=== PATIENT | male | born 1985 | race Caucasian/White ===

== ENCOUNTER 2016-07-02 23:09 | Emergency (ER) | payer SELFPAY ==
[~2016-07-02] VITALS: Ht 175.3 cm; Wt 69.4 kg
[~2016-07-02 23:09] MED LIST: DELTASONE20 M1 PO; DEPAKOTE500 MG PO; KEFLEX500 MG PO; LEVAQUIN750 MG PO; LIBRIUM25 MG PO; PROMETHAZINE-C120 ML PO; RISPERDAL1 MG PO; SEROQUEL50 MG PO; SILVADENE20 GM TP; THIAMINE HCL100 MG PO; TRAMADOL HCL50 MG PO; VITAMIN B-1100 MG PO
[2016-07-02 23:10] VITALS: BP 147/106
== END 2016-07-03 00:05 | disposition left against medical advice (07) ==
LOC: EME 23:09
DX: R51 Headache (principal); Y09 Assault by unspecified means; Z53.21 Procedure and treatment not carried out due to patient leaving prior to being seen by health care provider

== ENCOUNTER 2016-07-12 01:35 | Inpatient (IN) | payer SELFPAY ==
[~2016-07-12] VITALS: Ht 180.3 cm; Wt 70.8 kg
[2016-07-12 02:42] LABS: HEMATOCRIT 37.8 % (38.0-50.0); MCH 29.9 PG (29.0-34.0); MCHC 33.6 G/DL (30.0-36.0); MCV 88.9 FL (86-99); MEAN PLAT.VOLUME 10.4 uM^3 (9.0-12.4); PLATELET COUNT 234 K/uL (156-360); RBC DIS.WIDTH-CV 12.6 % (11.8-14.6); RBC DIS.WIDTH-SD 39.6 % (39-53); RED BLOOD COUNT 4.25 M/uL (4.00-5.50); WHITE BLOOD COUNT 9.9 K/uL (4.1-10.2)
[2016-07-12 02:53] LABS: CHLORIDE 112 mEq/L (99-109); POTASSIUM 3.2 mEq/L (3.7-5.4); SODIUM 144 mEq/L (136-147)
[2016-07-12 02:54] LABS: GLUCOSE 87 mg/dL (70-99)
[2016-07-12 02:56] LABS: ANION GAP 13 MEQ/L (2-14)
[2016-07-12 02:58] LABS: GFR ESTIMATE (CALCULATED) > 59 mL/min/; SERUM ETHYL ALCOHOL 161 mg/dL
[2016-07-12 03:00] LABS: UREA NITROGEN (BUN) 7 mg/dL (9-23)
[2016-07-12 03:01] LABS: SALICYLATE < 5.0 MG/DL (15-30)
[2016-07-12 11:42] LABS: ADD MEDTOX COMMENT Y; AMPHETAMINE NEGATIVE (500 ng/mL); BARBITURATES NEGATIVE (200 ng/mL); BENZODIAZEPINES PRESUMPTIVE POSITIVE (150 ng/mL); COCAINE NEGATIVE (150 ng/mL); INTERNAL CONTROLS VALID? YES; METHADONE NEGATIVE (200 ng/mL); METHAMPHETAMINE NEGATIVE (500 ng/mL); OPIATES (MORPHINE) NEGATIVE (100 ng/mL); OXYCODONE NEGATIVE (100 ng/mL); PHENCYCLIDINE NEGATIVE (25 ng/mL); PROPOXYPHENE NEGATIVE (300 ng/mL); THC CANNABINOIDS PRESUMPTIVE POSITIVE (50 ng/mL); TRICYCLIC ANTIDEPRESSANTS NEGATIVE (300 ng/mL)
[2016-07-12 12:22] LABS: BENZODIAZEPINES QUANT VALUE 0 NG/ML
[2016-07-12 12:30] LABS: BENZODIAZEPINES, URINE SCREEN Negative (200 ng/mL)
[2016-07-12 14:59] VITALS: BP 126/81
[2016-07-12 15:54] VITALS: BP 126/81
[2016-07-12 17:04] LABS: MAGNESIUM 1.6 mg/dL (1.3-2.7)
[2016-07-13 07:42] VITALS: BP 140/78
[2016-07-13 09:18] LABS: ALKALINE PHOSPHATASE 50 IU/L (3-129); ANION GAP 8 MEQ/L (2-14); CHLORIDE 106 MEQ/L (99-109); GFR ESTIMATE (CALCULATED) > 59 mL/min/; SAMPLE HEMOLYSIS CHECK 0; SAMPLE ICTERIC CHECK 0; SAMPLE LIPEMIA CHECK 0; SODIUM 140 MEQ/L (136-147); TOTAL BILIRUBIN 0.9 MG/DL (0.0-1.0); UREA NITROGEN (BUN) 14 mg/dL (9-23)
[2016-07-13 09:20] LABS: GLUCOSE 118 mg/dL (70-99); POTASSIUM 4.2 MEQ/L (3.7-5.4)
[2016-07-13 15:51] VITALS: BP 134/82
[2016-07-14 06:16] VITALS: BP 127/80
[2016-07-14 09:44] VITALS: BP 147/87
[2016-07-14] MEDS ORDERED: SERTRALINE HCL50 MG PO (11:51)
== END 2016-07-14 12:01 | disposition home or self-care (01) | DRG 885 ==
LOC: EME 01:35 → 1WEST 11:52 → EDOF 11:52 → 1WEST 15:02
PROVIDERS: Emergency Medicine; Psychiatry & Neurology Psychiatry
DX: F33.9 Major depressive disorder, recurrent, unspecified (principal); F60.2 Antisocial personality disorder; F10.129 Alcohol abuse with intoxication, unspecified; F12.10 Cannabis abuse, uncomplicated; Z91.5 Personal history of self-harm; R45.851 Suicidal ideations; Y90.4 Blood alcohol level of 80-99 mg/100 ml
CPT/HCPCS: 70450; 70498; 72125; 74022; 80048; 80053; 83735; 84999; 85027; 90837; 97150 GO; 97166 GO; 99281; 99285; G0480; J1630; J2060; J7030; Q0177

== ENCOUNTER 2016-07-27 10:10 | Emergency (ER) | payer SELFPAY ==
[~2016-07-27] VITALS: Ht 175.3 cm; Wt 69.2 kg
[~2016-07-27 10:10] MED LIST changes: +SERTRALINE HCL50 MG PO
[2016-07-27 11:07] LABS: HEMATOCRIT 40.8 % (38.0-50.0); MCHC 34.3 G/DL (30.0-36.0); MCV 87.6 FL (86-99); MEAN PLAT.VOLUME 9.5 uM^3 (9.0-12.4); PLATELET COUNT 272 K/uL (156-360); RBC DIS.WIDTH-CV 13.2 % (11.8-14.6); RBC DIS.WIDTH-SD 41.1 % (39-53); RED BLOOD COUNT 4.66 M/uL (4.00-5.50); WHITE BLOOD COUNT 10.5 K/uL (4.1-10.2)
[2016-07-27 11:10] LABS: BILIRUBIN NEGATIVE; BLOOD NEGATIVE; COLOR YELLOW ((YELLOW)); GLUCOSE (STRIP) NEGATIVE; KETONES NEGATIVE; LEUKOCYTES NEGATIVE; NITRITE NEGATIVE; PROTEIN (STRIP) NEGATIVE; SPECIFIC GRAVITY 1.021 (1.000-1.030)
[2016-07-27 11:11] LABS: ADD MIUA? NO; UCUL ADDED? NO
[2016-07-27 11:19] LABS: CHLORIDE 103 mEq/L (99-109); POTASSIUM 4.2 mEq/L (3.7-5.4); SODIUM 137 mEq/L (136-147)
[2016-07-27 11:22] LABS: THC CANNABINOIDS PRESUMPTIVE POSITIVE (50 ng/mL)
[2016-07-27 11:22] LABS: GLUCOSE 82 mg/dL (70-99)
[2016-07-27 11:23] LABS: ANION GAP 6 MEQ/L (2-14); TOTAL BILIRUBIN 0.7 mg/dL (0.0-1.0)
[2016-07-27 11:23] LABS: ADD MEDTOX COMMENT Y; AMPHETAMINE NEGATIVE (500 ng/mL); BARBITURATES NEGATIVE (200 ng/mL); BENZODIAZEPINES NEGATIVE (150 ng/mL); COCAINE NEGATIVE (150 ng/mL); INTERNAL CONTROLS VALID? YES; METHADONE NEGATIVE (200 ng/mL); METHAMPHETAMINE NEGATIVE (500 ng/mL); OPIATES (MORPHINE) NEGATIVE (100 ng/mL); OXYCODONE NEGATIVE (100 ng/mL); PHENCYCLIDINE NEGATIVE (25 ng/mL); PROPOXYPHENE NEGATIVE (300 ng/mL); TRICYCLIC ANTIDEPRESSANTS NEGATIVE (300 ng/mL)
[2016-07-27 11:24] LABS: SERUM ETHYL ALCOHOL < 10 mg/dL
[2016-07-27 11:25] LABS: ALKALINE PHOSPHATASE 61 IU/L (3-129); GFR ESTIMATE (CALCULATED) > 59 mL/min/
[2016-07-27 11:26] LABS: UREA NITROGEN (BUN) 14 mg/dL (9-23)
[2016-07-27] MEDS ORDERED: VALIUM5 MG PO (18:08)
[2016-07-27 18:12] VITALS: BP 119/81
== END 2016-07-27 18:24 | disposition home or self-care (01) ==
LOC: EME 10:10
PROVIDERS: Emergency Medicine
DX: F10.239 Alcohol dependence with withdrawal, unspecified (principal); F33.1 Major depressive disorder, recurrent, moderate; F60.2 Antisocial personality disorder; F17.200 Nicotine dependence, unspecified, uncomplicated
CPT/HCPCS: 80053; 81003; 84999; 85027; 90839; 99281; 99285; G0480; J2060; J7030

== ENCOUNTER 2016-09-06 13:58 | Emergency (ER) | payer BC ==
[~2016-09-06] VITALS: Ht 175.3 cm; Wt 67.3 kg
[~2016-09-06 13:58] MED LIST changes: +VALIUM5 MG PO
[2016-09-06 15:09] VITALS: BP 148/103
== END 2016-09-06 15:16 | disposition home or self-care (01) ==
LOC: EME 13:58
DX: F10.239 Alcohol dependence with withdrawal, unspecified (principal)
CPT/HCPCS: 99281; 99284; J3360

== ENCOUNTER 2016-11-14 21:46 | Emergency (ER) | payer BC ==
[~2016-11-14] VITALS: Ht 175.3 cm; Wt 74.8 kg
[2016-11-14 21:48] VITALS: BP 135/101
[2016-11-14 22:08] LABS: ADD MIUA? YES; BILIRUBIN NEGATIVE; BLOOD NEGATIVE; COLOR AMBER ((YELLOW)); GLUCOSE (STRIP) NEGATIVE; KETONES NEGATIVE; LEUKOCYTES NEGATIVE; NITRITE NEGATIVE; PROTEIN (STRIP) 100
[2016-11-14 22:27] LABS: BACTERIA NONE SEEN /HPF; CALCIUM OXALATE CRYSTALS 3+ /HPF; EPITHELIAL CELLS RARE /HPF; MUCUS 4+ /LPF; RED BLOOD CELLS NONE SEEN /HPF (0-5); UCUL ADDED? NO; WHITE BLOOD CELLS NONE SEEN /HPF (0-5)
[2016-11-14 22:29] LABS: ADD MEDTOX COMMENT Y; AMPHETAMINE NEGATIVE (500 ng/mL); BARBITURATES NEGATIVE (200 ng/mL); BENZODIAZEPINES NEGATIVE (150 ng/mL); COCAINE NEGATIVE (150 ng/mL); INTERNAL CONTROLS VALID? YES; METHADONE NEGATIVE (200 ng/mL); METHAMPHETAMINE NEGATIVE (500 ng/mL); OPIATES (MORPHINE) NEGATIVE (100 ng/mL); OXYCODONE NEGATIVE (100 ng/mL); PHENCYCLIDINE NEGATIVE (25 ng/mL); PROPOXYPHENE NEGATIVE (300 ng/mL); THC CANNABINOIDS PRESUMPTIVE POSITIVE (50 ng/mL); TRICYCLIC ANTIDEPRESSANTS NEGATIVE (300 ng/mL)
== END 2016-11-15 00:43 | disposition left against medical advice (07) ==
LOC: EME 21:46
DX: R41.9 Unspecified symptoms and signs involving cognitive functions and awareness (principal); Z53.21 Procedure and treatment not carried out due to patient leaving prior to being seen by health care provider
CPT/HCPCS: 80048; 81003; 84999; 85027; G0480

== ENCOUNTER 2016-11-20 15:12 | Emergency (ER) | payer BC ==
[~2016-11-20] VITALS: Ht 175.3 cm; Wt 74.2 kg
[2016-11-20 15:58] LABS: HEMATOCRIT 42.5 % (38.0-50.0); MCH 29.8 PG (29.0-34.0); MCHC 33.9 G/DL (30.0-36.0); MCV 87.8 FL (86-99); MEAN PLAT.VOLUME 9.3 uM^3 (9.0-12.4); PLATELET COUNT 207 K/uL (156-360); RBC DIS.WIDTH-CV 12.7 % (11.8-14.6); RBC DIS.WIDTH-SD 40.8 % (39-53); RED BLOOD COUNT 4.84 M/uL (4.00-5.50); WHITE BLOOD COUNT 7.8 K/uL (4.1-10.2)
[2016-11-20 16:08] LABS: CHLORIDE 102 mEq/L (99-109); POTASSIUM 4.4 mEq/L (3.7-5.4); SODIUM 136 mEq/L (136-147)
[2016-11-20 16:10] LABS: GLUCOSE 90 mg/dL (70-99)
[2016-11-20 16:11] LABS: ANION GAP 10 MEQ/L (2-14)
[2016-11-20 16:13] LABS: SERUM ETHYL ALCOHOL < 10 mg/dL
[2016-11-20 16:14] LABS: GFR ESTIMATE (CALCULATED) > 59 mL/min/
[2016-11-20 16:15] LABS: UREA NITROGEN (BUN) 13 mg/dL (9-23)
[2016-11-20 16:40] LABS: TOTAL BILIRUBIN 1.5 mg/dL (0.0-1.0)
[2016-11-20 16:41] LABS: ALKALINE PHOSPHATASE 74 IU/L (3-129)
[2016-11-20 16:43] LABS: DIRECT BILIRUBIN 0.6 mg/dL (0.0-0.3)
[2016-11-20 16:44] LABS: LIPASE 37 U/L (1.0-51.0)
[2016-11-20 16:51] LABS: AMPHETAMINE NEGATIVE (500 ng/mL); COCAINE NEGATIVE (150 ng/mL); METHAMPHETAMINE NEGATIVE (500 ng/mL); OPIATES (MORPHINE) NEGATIVE (100 ng/mL); PHENCYCLIDINE NEGATIVE (25 ng/mL); THC CANNABINOIDS PRESUMPTIVE POSITIVE (50 ng/mL)
[2016-11-20 16:52] LABS: ADD MEDTOX COMMENT Y; BARBITURATES NEGATIVE (200 ng/mL); BENZODIAZEPINES NEGATIVE (150 ng/mL); INTERNAL CONTROLS VALID? YES; METHADONE NEGATIVE (200 ng/mL); OXYCODONE NEGATIVE (100 ng/mL); PROPOXYPHENE NEGATIVE (300 ng/mL); TRICYCLIC ANTIDEPRESSANTS NEGATIVE (300 ng/mL)
[2016-11-20] MEDS ORDERED: LIBRIUM25 MG PO (18:16)
[2016-11-20] MEDS ORDERED: THIAMINE HCL100 MG PO (18:16)
[2016-11-20 19:16] VITALS: BP 156/98
== END 2016-11-20 19:16 | disposition home or self-care (01) ==
LOC: EME 15:12
DX: F10.239 Alcohol dependence with withdrawal, unspecified (principal); J45.909 Unspecified asthma, uncomplicated; B19.20 Unspecified viral hepatitis C without hepatic coma; Z87.442 Personal history of urinary calculi; Z91.5 Personal history of self-harm; F17.200 Nicotine dependence, unspecified, uncomplicated
CPT/HCPCS: 80048; 80076; 83690; 84999; 85027; 99281; 99283; G0480

== ENCOUNTER 2017-02-24 21:43 | Observation (INO) | payer BC ==
[~2017-02-24] VITALS: Ht 175.3 cm; Wt 78.8 kg
[2017-02-24 22:21] LABS: EOSINOPHIL (%) 0.9 % (0-5); EOSINOPHIL COUNT 0.2 K/uL (0-0.3); HEMATOCRIT 37.3 % (38.0-50.0); IMMATURE GRANULOCYTE (%) 0.4 % (0.0-0.7); IMMATURE GRANULOCYTE COUNT 0.1 K/uL; INSTRUMENT ABS NEUTROPHIL CT 11.8 K/uL; LYMPHOCYTE COUNT 2.5 K/uL (1.0-2.8); MCH 29.2 PG (29.0-34.0); MCV 85.7 FL (86-99); MONOCYTE (%) 16.4 % (3-12); MONOCYTE COUNT 2.9 K/uL (0-0.8); NEUTROPHIL (%) 67.8 % (45-76); NEUTROPHIL COUNT 11.8 K/uL (1.8-6.4); PLATELET COUNT 252 K/uL (156-360); RBC DIS.WIDTH-CV 12.3 % (11.8-14.6); RBC DIS.WIDTH-SD 38.8 % (39-53); RED BLOOD COUNT 4.35 M/uL (4.00-5.50); WHITE BLOOD COUNT 17.4 K/uL (4.1-10.2)
[2017-02-24 22:32] LABS: CHLORIDE 96 mEq/L (99-109); POTASSIUM 3.3 mEq/L (3.7-5.4); SODIUM 131 mEq/L (136-147)
[2017-02-24 22:33] LABS: GLUCOSE 100 mg/dL (70-99)
[2017-02-24 22:35] LABS: ANION GAP 7 MEQ/L (2-14)
[2017-02-24 22:37] LABS: GFR ESTIMATE (CALCULATED) > 59 mL/min/
[2017-02-24 22:38] LABS: UREA NITROGEN (BUN) 9 mg/dL (9-23)
[2017-02-24 23:13] LABS: TROP-I INTERPRETATION NEGATIVE; TROPONIN-I < 0.01 ng/mL (0.0-0.30)
[2017-02-24] MEDS ORDERED: LAMICTAL25 MG PO (23:26)
[2017-02-25 01:42] LABS: ADD MIUA? NO; BILIRUBIN NEGATIVE; BLOOD NEGATIVE; COLOR YELLOW ((YELLOW)); GLUCOSE (STRIP) NEGATIVE; KETONES NEGATIVE; LEUKOCYTES NEGATIVE; NITRITE NEGATIVE; PROTEIN (STRIP) NEGATIVE; SPECIFIC GRAVITY 1.006 (1.000-1.030); UCUL ADDED? NO
[2017-02-25 04:31] LABS: MAGNESIUM 1.8 mg/dL (1.3-2.7)
[2017-02-25 04:35] LABS: TOTAL BILIRUBIN 0.6 mg/dL (0.0-1.0)
[2017-02-25 04:36] LABS: ALKALINE PHOSPHATASE 54 IU/L (3-129)
[2017-02-25 04:38] LABS: DIRECT BILIRUBIN 0.3 mg/dL (0.0-0.3)
[2017-02-25 05:42] VITALS: BP 121/77
[2017-02-25 07:17] VITALS: BP 118/62
[2017-02-25 07:51] LABS: HEMATOCRIT 34.6 % (38.0-50.0); MCH 30.4 PG (29.0-34.0); MCHC 34.4 G/DL (30.0-36.0); MCV 88.5 FL (86-99); MEAN PLAT.VOLUME 9.9 uM^3 (9.0-12.4); PLATELET COUNT 220 K/uL (156-360); RBC DIS.WIDTH-CV 12.9 % (11.8-14.6); RBC DIS.WIDTH-SD 41.9 % (39-53); RED BLOOD COUNT 3.91 M/uL (4.00-5.50); WHITE BLOOD COUNT 13.6 K/uL (4.1-10.2)
[2017-02-25 08:13] LABS: ANION GAP 2 MEQ/L (2-14); CHLORIDE 108 MEQ/L (99-109); GFR ESTIMATE (CALCULATED) > 59 mL/min/; GLUCOSE 94 mg/dL (70-99); MAGNESIUM 2.1 mg/dl (1.3-2.7); SAMPLE HEMOLYSIS CHECK 0; SAMPLE ICTERIC CHECK 0; SAMPLE LIPEMIA CHECK 0; UREA NITROGEN (BUN) 7 mg/dL (9-23)
[2017-02-25 08:14] LABS: SODIUM 141 MEQ/L (136-147)
[2017-02-25 10:26] LABS: POINT-OF-CARE METER ID UU14188577
[2017-02-25 13:40] VITALS: BP 120/61
[2017-02-25 15:59] VITALS: BP 133/79
[2017-02-25 21:05] VITALS: BP 120/70
[2017-02-26] VITALS (8 sets, daily range): BP systolic 118–191; BP diastolic 76–91
[2017-02-26 06:34] LABS: EOSINOPHIL (%) 4.9 % (0-5); EOSINOPHIL COUNT 0.6 K/uL (0-0.3); HEMATOCRIT 32.5 % (38.0-50.0); IMMATURE GRANULOCYTE (%) 0.5 % (0.0-0.7); IMMATURE GRANULOCYTE COUNT 0.1 K/uL; INSTRUMENT ABS NEUTROPHIL CT 7.3 K/uL; LYMPHOCYTE COUNT 2.1 K/uL (1.0-2.8); MCHC 32.6 G/DL (30.0-36.0); MEAN PLAT.VOLUME 10.8 uM^3 (9.0-12.4); MONOCYTE (%) 11.3 % (3-12); MONOCYTE COUNT 1.3 K/uL (0-0.8); NEUTROPHIL (%) 64.4 % (45-76); NEUTROPHIL COUNT 7.3 K/uL (1.8-6.4); PLATELET COUNT 242 K/uL (156-360); RBC DIS.WIDTH-CV 12.9 % (11.8-14.6); RBC DIS.WIDTH-SD 42.5 % (39-53); RED BLOOD COUNT 3.65 M/uL (4.00-5.50); WHITE BLOOD COUNT 11.4 K/uL (4.1-10.2)
[2017-02-26 08:11] LABS: ANION GAP 6 MEQ/L (2-14); CHLORIDE 105 MEQ/L (99-109); GFR ESTIMATE (CALCULATED) > 59 mL/min/; GLUCOSE 99 mg/dL (70-99); POTASSIUM 3.9 MEQ/L (3.7-5.4); SAMPLE HEMOLYSIS CHECK 0; SAMPLE ICTERIC CHECK 0; SAMPLE LIPEMIA CHECK 0; SODIUM 138 MEQ/L (136-147); UREA NITROGEN (BUN) 11 mg/dL (9-23)
[2017-02-27 05:02] VITALS: BP 135/82
[2017-02-27 07:03] VITALS: BP 154/94
[2017-02-27 08:56] LABS: GFR ESTIMATE (CALCULATED) > 59 mL/min/; VANCOMYCIN, TROUGH 15.2 MCG/ML (10-20)
[2017-02-27 11:10] VITALS: BP 175/100
[2017-02-27 15:02] VITALS: BP 186/110
[2017-02-27 22:59] VITALS: BP 156/84
[2017-02-28 03:42] VITALS: BP 160/78
[2017-02-28 06:45] LABS: ANION GAP 8 MEQ/L (2-14); CHLORIDE 101 MEQ/L (99-109); GFR ESTIMATE (CALCULATED) > 59 mL/min/; GLUCOSE 93 mg/dL (70-99); POTASSIUM 4.5 MEQ/L (3.7-5.4); SAMPLE HEMOLYSIS CHECK 0; SAMPLE ICTERIC CHECK 0; SAMPLE LIPEMIA CHECK 0; SODIUM 139 MEQ/L (136-147); UREA NITROGEN (BUN) 8 mg/dL (9-23)
[2017-02-28 07:10] VITALS: BP 136/88
[2017-02-28 08:40] LABS: BASOPHIL COUNT 0.1 K/uL (0-0.1); EOSINOPHIL (%) 10.3 % (0-5); EOSINOPHIL COUNT 0.5 K/uL (0-0.3); HEMATOCRIT 36.6 % (38.0-50.0); IMMATURE GRANULOCYTE (%) 1.5 % (0.0-0.7); IMMATURE GRANULOCYTE COUNT 0.1 K/uL; INSTRUMENT ABS NEUTROPHIL CT 2.1 K/uL; LYMPHOCYTE COUNT 1.2 K/uL (1.0-2.8); MCH 28.9 PG (29.0-34.0); MCHC 32.5 G/DL (30.0-36.0); MCV 88.8 FL (86-99); MEAN PLAT.VOLUME 10.2 uM^3 (9.0-12.4); MONOCYTE (%) 18.4 % (3-12); MONOCYTE COUNT 0.9 K/uL (0-0.8); NEUTROPHIL (%) 43.9 % (45-76); NEUTROPHIL COUNT 2.1 K/uL (1.8-6.4); PLATELET COUNT 292 K/uL (156-360); RBC DIS.WIDTH-CV 12.7 % (11.8-14.6); RBC DIS.WIDTH-SD 41.7 % (39-53); RED BLOOD COUNT 4.12 M/uL (4.00-5.50); WHITE BLOOD COUNT 4.8 K/uL (4.1-10.2)
[2017-02-28] MEDS ORDERED: AUGMENTIN875 MG PO (09:57)
[2017-02-28 11:15] LABS: HIV-1/2 AB/AG COMBO Nonreactive
== END 2017-02-28 11:07 | disposition home or self-care (01) ==
LOC: EME 21:43 → 3EAST 02-25 03:02 → EDOF 02-25 03:02 → ENRESERV 02-25 03:49 → 3EAST 02-25 05:27
PROVIDERS: Hospitalist; Internal Medicine; Physician Assistant; Surgery
PROC: 0J9H0ZZ Drainage of Left Lower Arm Subcutaneous Tissue and Fascia, Open Approach (ICD-10-PCS; principal; 2017-02-25)
DX: L03.114 Cellulitis of left upper limb (principal); L02.414 Cutaneous abscess of left upper limb; B95.0 Streptococcus, group A, as the cause of diseases classified elsewhere; G89.18 Other acute postprocedural pain; B18.2 Chronic viral hepatitis C; F14.10 Cocaine abuse, uncomplicated; F11.10 Opioid abuse, uncomplicated; F10.10 Alcohol abuse, uncomplicated; F41.9 Anxiety disorder, unspecified; F32.9 Major depressive disorder, single episode, unspecified; F60.9 Personality disorder, unspecified; Z59.0 Homelessness; E87.6 Hypokalemia; R59.0 Localized enlarged lymph nodes; S90.822A Blister (nonthermal), left foot, initial encounter; S90.821A Blister (nonthermal), right foot, initial encounter; F17.200 Nicotine dependence, unspecified, uncomplicated; Z82.5 Family history of asthma and other chronic lower respiratory diseases; Z81.1 Family history of alcohol abuse and dependence
CPT/HCPCS: 71020; 73201; 80048; 80048 91; 80076; 80202; 81003; 82565; 82948; 83605; 83735; 84484; 85025; 85027; 86703; 87040; 87070; 87075; 87077; 87186; 87205; 93005; 99281; 99285; G0378; J0360; J1170; J1650; J1885; J2060; J2250; J2270; J2405; J2540; J2543; J3010; J3370; J3411; J7030; J7050; S0020

== ENCOUNTER 2017-07-28 05:22 | Emergency (ER) | payer BC ==
[~2017-07-28] VITALS: Ht 175.3 cm; Wt 79.2 kg
[~2017-07-28 05:22] MED LIST changes: +AUGMENTIN875 MG PO; +LAMICTAL25 MG PO
[2017-07-28 06:38] LABS: HEMOGLOBIN 12.8 G/DL (12.5-16.6); MCH 28.9 PG (29.0-34.0); MCHC 33.7 G/DL (30.0-36.0); MCV 85.8 FL (86-99); PLATELET COUNT 217 K/uL (156-360); RBC DIS.WIDTH-CV 13.2 % (11.8-14.6); RBC DIS.WIDTH-SD 41.5 % (39-53); RED BLOOD COUNT 4.43 M/uL (4.00-5.50); WHITE BLOOD COUNT 14.1 K/uL (4.1-10.2)
[2017-07-28 07:35] LABS: AMPHETAMINE NEGATIVE (500 ng/mL); BARBITURATES NEGATIVE (200 ng/mL); BENZODIAZEPINES NEGATIVE (150 ng/mL); BUPRENORPHINE NEGATIVE (10 ng/mL); COCAINE PRESUMPTIVE POSITIVE (150 ng/mL); METHADONE NEGATIVE (200 ng/mL); METHAMPHETAMINE NEGATIVE (500 ng/mL); OPIATES (MORPHINE) NEGATIVE (100 ng/mL); OXYCODONE NEGATIVE (100 ng/mL); PHENCYCLIDINE NEGATIVE (25 ng/mL); PROPOXYPHENE NEGATIVE (300 ng/mL); THC CANNABINOIDS PRESUMPTIVE POSITIVE (50 ng/mL); TRICYCLIC ANTIDEPRESSANTS NEGATIVE (300 ng/mL)
[2017-07-28 07:41] LABS: ALBUMIN 4.5 G/DL (3.2-4.8); ALKALINE PHOSPHATASE 53 IU/L (3-129); ALT (GPT) 207 IU/L (3-49); AST (GOT) 142 IU/L (2-34); CHLORIDE 96 MEQ/L (99-109); CREATININE 0.7 MG/DL (0.6-1.3); GFR ESTIMATE (CALCULATED) > 59 mL/min/ (58.99-99999); GLUCOSE 68 mg/dL (70-99); POTASSIUM 3.6 MEQ/L (3.7-5.4); SERUM ETHYL ALCOHOL < 10 mg/dL; SODIUM 135 MEQ/L (136-147); TOTAL BILIRUBIN 1.4 MG/DL (0.0-1.0); UREA NITROGEN (BUN) 17 mg/dL (9-23)
[2017-07-28 10:05] VITALS: BP 157/89
== END 2017-07-28 10:07 | disposition home or self-care (01) ==
LOC: EME 05:22
PROVIDERS: Emergency Medicine
DX: F19.129 Other psychoactive substance abuse with intoxication, unspecified (principal); F14.129 Cocaine abuse with intoxication, unspecified; F12.129 Cannabis abuse with intoxication, unspecified; F32.9 Major depressive disorder, single episode, unspecified; B19.20 Unspecified viral hepatitis C without hepatic coma; R56.9 Unspecified convulsions; F41.9 Anxiety disorder, unspecified; F17.200 Nicotine dependence, unspecified, uncomplicated; Z91.5 Personal history of self-harm; Z87.442 Personal history of urinary calculi; Z88.8 Allergy status to other drugs, medicaments and biological substances
CPT/HCPCS: 80053; 84999; 85027; 90839; 99281; 99285; G0480

== ENCOUNTER 2017-08-13 18:44 | Inpatient (IN) | payer BC ==
[~2017-08-13] VITALS: Ht 175.3 cm; Wt 78.1 kg
[2017-08-13 19:45] LABS: HEMATOCRIT 39.1 % (38.0-50.0); HEMOGLOBIN 13.4 G/DL (12.5-16.6); MCH 30.3 PG (29.0-34.0); MCHC 34.3 G/DL (30.0-36.0); MCV 88.5 FL (86-99); RBC DIS.WIDTH-CV 13.9 % (11.8-14.6); RBC DIS.WIDTH-SD 45.1 % (39-53); RED BLOOD COUNT 4.42 M/uL (4.00-5.50); WHITE BLOOD COUNT 8.2 K/uL (4.1-10.2)
[2017-08-13 19:49] LABS: PLATELET COUNT 310 K/uL (156-360)
[2017-08-13 20:07] LABS: ALBUMIN 4.5 G/DL (3.2-4.8); CHLORIDE 105 MEQ/L (99-109); POTASSIUM 4.3 MEQ/L (3.7-5.4); SODIUM 140 MEQ/L (136-147); TOTAL BILIRUBIN 0.2 MG/DL (0.0-1.0)
[2017-08-13 20:12] LABS: ALKALINE PHOSPHATASE 69 IU/L (3-129); ALT (GPT) 110 IU/L (3-49); AST (GOT) 91 IU/L (2-34); GFR ESTIMATE (CALCULATED) > 59 mL/min/ (58.99-99999); GLUCOSE 134 mg/dL (70-99); LIPASE 18 U/L (1.0-51.0); SERUM ETHYL ALCOHOL 149 mg/dL; TOTAL PROTEIN 7.4 G/DL (6.4-8.3); UREA NITROGEN (BUN) 7 mg/dL (9-23)
[2017-08-13 20:34] LABS: SALICYLATE < 3.0 MG/DL (15-30)
[2017-08-13 20:57] LABS: PTT 27.7 SEC (25-37)
[2017-08-14 00:32] VITALS: BP 120/65
[2017-08-14 02:17] LABS: MAGNESIUM 1.9 mg/dl (1.3-2.7)
[2017-08-14 07:06] LABS: APPEARANCE CLEAR ((CLEAR)); BILIRUBIN NEGATIVE; BLOOD NEGATIVE; COLOR YELLOW ((YELLOW)); GLUCOSE (STRIP) NEGATIVE; KETONES NEGATIVE; LEUKOCYTES NEGATIVE; NITRITE NEGATIVE; PROTEIN (STRIP) NEGATIVE; SPECIFIC GRAVITY 1.012 (1.000-1.030); UCUL ADDED? NO
[2017-08-14 07:27] VITALS: BP 104/52
[2017-08-14 07:46] LABS: BENZODIAZEPINES, URINE SCREEN POSITIVE (200 ng/mL)
[2017-08-14 12:41] VITALS: BP 101/67
[2017-08-14 16:26] VITALS: BP 123/59
[2017-08-14 19:18] VITALS: BP 113/57
[2017-08-15 04:51] VITALS: BP 141/93
[2017-08-15 07:00] LABS: BASOPHIL (%) 0.8 % (0-1); BASOPHIL COUNT 0.1 K/uL (0-0.1); EOSINOPHIL (%) 2.2 % (0-5); EOSINOPHIL COUNT 0.2 K/uL (0-0.3); HEMATOCRIT 37.4 % (38.0-50.0); HEMOGLOBIN 12.2 G/DL (12.5-16.6); IMMATURE GRANULOCYTE (%) 0.7 % (0.0-0.7); LYMPHOCYTE (%) 35.2 % (15-42); LYMPHOCYTE COUNT 2.6 K/uL (1.0-2.8); MCH 29.5 PG (29.0-34.0); MCHC 32.6 G/DL (30.0-36.0); MCV 90.3 FL (86-99); MONOCYTE (%) 12.3 % (3-12); MONOCYTE COUNT 0.9 K/uL (0-0.8); NEUTROPHIL (%) 48.8 % (45-76); NEUTROPHIL COUNT 3.6 K/uL (1.8-6.4); PLATELET COUNT 254 K/uL (156-360); RBC DIS.WIDTH-CV 14.1 % (11.8-14.6); RBC DIS.WIDTH-SD 46.5 % (39-53); RED BLOOD COUNT 4.14 M/uL (4.00-5.50); WHITE BLOOD COUNT 7.3 K/uL (4.1-10.2)
[2017-08-15 07:24] LABS: ALBUMIN 3.6 G/DL (3.2-4.8); ALKALINE PHOSPHATASE 59 IU/L (3-129); ALT (GPT) 74 IU/L (3-49); AST (GOT) 58 IU/L (2-34); CHLORIDE 107 MEQ/L (99-109); CREATININE 1.1 MG/DL (0.6-1.3); GFR ESTIMATE (CALCULATED) > 59 mL/min/ (58.99-99999); POTASSIUM 4.2 MEQ/L (3.7-5.4); SODIUM 141 MEQ/L (136-147); UREA NITROGEN (BUN) 12 mg/dL (9-23)
[2017-08-15 07:25] LABS: GLUCOSE 84 mg/dL (70-99); TOTAL BILIRUBIN 0.3 MG/DL (0.0-1.0); TOTAL PROTEIN 5.8 G/DL (6.4-8.3)
[2017-08-15 07:35] VITALS: BP 130/85
[2017-08-15 12:09] VITALS: BP 137/79
== END 2017-08-15 13:17 | disposition left against medical advice (07) | DRG 394 ==
LOC: EME 18:44 → 5WEST 22:37 → EDOF 22:37 → ENRESERV 22:38 → 5WEST 08-14 00:12 → ENRESERV 08-14 14:39 → CANRESERV 08-14 23:51 → 5WEST 08-15 13:17
PROVIDERS: Internal Medicine; Physician Assistant; Physician Assistant Medical
DX: T18.2XXA Foreign body in stomach, initial encounter (principal); F11.20 Opioid dependence, uncomplicated; X78.8XXA Intentional self-harm by other sharp object, initial encounter; F31.9 Bipolar disorder, unspecified; F17.200 Nicotine dependence, unspecified, uncomplicated; R45.851 Suicidal ideations; F60.2 Antisocial personality disorder; F10.229 Alcohol dependence with intoxication, unspecified; Y90.6 Blood alcohol level of 120-199 mg/100 ml; B19.20 Unspecified viral hepatitis C without hepatic coma; F14.10 Cocaine abuse, uncomplicated; F19.94 Other psychoactive substance use, unspecified with psychoactive substance-induced mood disorder; F41.9 Anxiety disorder, unspecified
CPT/HCPCS: 71045; 74018; 74019; 74176; 80053; 80306 90; 81003; 83690; 83735; 85025; 85027; 85610; 85730; 99281; 99285; G0378; G0480; J1200; J1630; J1885; J2060; J2405; J3411; J7030

== ENCOUNTER 2017-11-15 01:10 | Emergency (ER) | payer BC ==
[~2017-11-15] VITALS: Ht 175.3 cm; Wt 73.1 kg
[2017-11-15 01:23] LABS: HEMATOCRIT 42.5 % (38.0-50.0); HEMOGLOBIN 13.9 G/DL (12.5-16.6); MCH 29.9 PG (29.0-34.0); MCHC 32.7 G/DL (30.0-36.0); MCV 91.4 FL (86-99); PLATELET COUNT 254 K/uL (156-360); RBC DIS.WIDTH-SD 43.6 % (39-53); RED BLOOD COUNT 4.65 M/uL (4.00-5.50); WHITE BLOOD COUNT 12.5 K/uL (4.1-10.2)
[2017-11-15 01:31] LABS: ALBUMIN 4.6 g/dL (3.2-4.8); CHLORIDE 96 mEq/L (99-109); POTASSIUM 5.2 mEq/L (3.7-5.4); SODIUM 137 mEq/L (136-147)
[2017-11-15 01:34] LABS: GLUCOSE 342 mg/dL (70-99); TOTAL PROTEIN 7.4 g/dL (6.4-8.3)
[2017-11-15 01:36] LABS: TOTAL BILIRUBIN 1.3 mg/dL (0.0-1.0)
[2017-11-15 01:37] LABS: ALKALINE PHOSPHATASE 69 IU/L (3-129); SERUM ETHYL ALCOHOL < 10 mg/dL
[2017-11-15 01:38] LABS: CREATININE 1.2 mg/dL (0.6-1.3); GFR ESTIMATE (CALCULATED) > 59 mL/min/ (58.99-99999)
[2017-11-15 01:39] LABS: AST (GOT) 44 IU/L (2-34); UREA NITROGEN (BUN) 13 mg/dL (9-23)
[2017-11-15 01:40] LABS: ALT (GPT) 36 IU/L (3-49)
[2017-11-15] MEDS ORDERED: PROVENTIL HFA6.7 GM IH (04:10)
[2017-11-15] MEDS ORDERED: NARCAN4 MG NS (04:11)
[2017-11-15 04:25] VITALS: BP 134/86
== END 2017-11-15 04:26 | disposition home or self-care (01) ==
LOC: EME → EDBD 01:10 → EME 01:10
PROVIDERS: Emergency Medicine
DX: T40.1X1A Poisoning by heroin, accidental (unintentional), initial encounter (principal); B19.20 Unspecified viral hepatitis C without hepatic coma; F41.9 Anxiety disorder, unspecified; F32.9 Major depressive disorder, single episode, unspecified; F17.200 Nicotine dependence, unspecified, uncomplicated; Z91.5 Personal history of self-harm; Z87.442 Personal history of urinary calculi; Z88.8 Allergy status to other drugs, medicaments and biological substances
CPT/HCPCS: 71046; 80053; 85027; 90839; 93005; 94640; 99281; 99285; G0480